=== PATIENT | male | born 1970 | race Caucasian/White ===

== ENCOUNTER 2019-02-21 13:15 | Emergency (ER) | payer OTHER ==
[~2019-02-21] VITALS: Ht 172.7 cm; Wt 73.5 kg
--- NOTE | 2019-02-21 13:20 | NUR ---
ED Nurse Note: Patient walked in to ER from work due to lower back pain x 30 mins ago. Patient stated that he carried a heavy object at his workplace then accidentally hurt his back. No nausea/ vomiting noted. No injury was reported. Breathing even and unlabored. Afebrile. Alert and oriented x4, verbally responsive.
[2019-02-21] MEDS ORDERED: NKM (13:22)
--- NOTE | 2019-02-21 13:58 | Emergency Room Report ---
History of Present Illness General Chief Complaint: Back Injury Source: Patient Present Illness HPI 49 YO Male presents to the ED C/O 11/16 in severity LBP s/p acute onset after pushing cart with basket balls in it at work. Pt. denies trauma or fall. denies hx of LBP or previous injury at the site of his pain. Pt. denies sciatica, radiation of pain or inability to ambulate. Pt. denies recent spinal procedures or hx of Cancer. Denies numbness tingling or loss of sensation or gross motor movements of the extremities, incontinence of bowel or bladder. Denies CP, Palpitations, LOC, AMS, dizziness, Changes in Vision, weakness or a sudden severe headache. Pt. took Advil [employer] which provided some mild relief. No other aggravating or relieving factors at this time. Allergies: Coded Allergies: No Known Allergies (Unverified , 02/21/19) Patient History Past Medical History: see triage record Past Surgical History: none Pertinent Family History: none Reviewed Nursing Documentation: PMH: Agreed; PSxH: Agreed Nursing Documentation-PMH Past Medical History: No Stated History Review of Systems All Other Systems: negative except mentioned in HPI Physical Exam Vital Signs Date Time Temp Pulse Resp B/P (MAP) Pulse Ox O2 Delivery O2 Flow Rate FiO2 02/21/19 13:19 98.4 69 16 129/83 (98) 98 Room Air Sp02 EP Interpretation: reviewed, normal General Appearance: no apparent distress, alert, GCS 15, non-toxic Head: normocephalic, atraumatic Eyes: bilateral eye normal inspection, bilateral eye PERRL ENT: hearing grossly normal, normal voice Neck: full range of motion Respiratory: lungs clear, normal breath sounds, speaking full sentences Cardiovascular #1: regular rate, rhythm Gastrointestinal: non tender, soft Genitourinary: normal inspection, no CVA tenderness Musculoskeletal: back normal, gait/station normal, normal range of motion, tender - Mild Tenderness to palpation to bilateral paraspinal muscles of the lower back with little midline tenderness. FROM pain with forward flexion begining at the 90* point. No obvious bony deformity, no Palpable step-off, no significant localized bony spinous process ttp. Tenderness is generalized Neurologic: alert, oriented x3, responsive, motor strength/tone normal, sensory intact, speech normal, other - No cauda equina. No evidence of incontinence., grossly normal Psychiatric: judgement/insight normal Lymphatic: no adenopathy Medical Decision Making PA Attestation Dr. Soto is my supervising Physician whom patient management has been discussed with. Diagnostic Impression: Primary Impression: Lumbosacral strain Qualified Codes: S39.012A - Strain of muscle, fascia and tendon of lower back , initial encounter Additional Impression: Back pain Qualified Codes: M54.5 - Low back pain ER Course 49 YO Male presents to the ED C/O 11/16 in severity LBP s/p acute onset after pushing cart with basket balls in it at work. Pt. denies trauma or fall. denies hx of LBP or previous injury at the site of his pain. Pt. denies sciatica, radiation of pain or inability to ambulate. Pt. denies recent spinal procedures or hx of Cancer. Denies numbness tingling or loss of sensation or gross motor movements of the extremities, incontinence of bowel or bladder. Denies CP, Palpitations, LOC, AMS, dizziness, Changes in Vision, weakness or a sudden severe headache. Pt. took Advil [employer] which provided some mild relief. No other aggravating or relieving factors at this time. Ddx considered: epidural abscess, fracture, sprain/strain, meningitis, spinal chord injury, sciatica, cauda equina, Pyelonephritis, renal calculi just to name a few. Vital signs reviewed and are WNL during ED visit. Pt. is afebrile with no signs of infection No new symptoms, and denies recent trauma. No saddle anesthesia noted, Pt. denies incontinence Neurovascularly intact FROM with some exacerbation of pain upon forward flexion. * Mild Tenderness to palpation to bilateral paraspinal muscles of the lower back with little midline tenderness. ORDERS: none warranted at this time. INTERVENTIONS: - Lidoderm TP -Tramadol PO -I do not identify an emergent condition at this time. With current presentation , pt. is stable for close outpatient follow up and conservative treatment. D/ w pt. to return promptly to ED with worsening or new symptoms.- Pt. verbalizes' understanding and agreement with proposed treatment plan.proposed treatment plan. DISCHARGE: At this time pt. is stable for d/c to home. Will provide printed patient care instructions, and any necessary prescriptions. Care plan and follow up instructions have been discussed with the patient prior to discharge. Last Vital Signs Date Time Temp Pulse Resp B/P (MAP) Pulse Ox O2 Delivery O2 Flow Rate FiO2 02/21/19 13:19 98.4 69 16 129/83 (98) 98 Room Air Disposition: HOME, SELF-CARE Condition: Stable Scripts Lidocaine Patch* (Lidoderm Patch*) 1 Each Adh..patch 1 PATCH TOPIC DAILY, #30 PATCH 0 Refills Patch(es) may remain in place for up to 12 hours in any 24-hour period. Prov: Fouzia Torrez 02/21/19 Methocarbamol* (ROBAXIN-750*) 750 Mg Tablet 750 MG PO QID for 7 Days, #28 TAB 0 Refills Prov: oFuzia Torrez 02/21/19 Ibuprofen* (MOTRIN*) 600 Mg Tablet 600 MG ORAL THREE TIMES A DAY, #30 TAB 0 Refills Prov: Fouzia Torrez 02/21/19 Departure Forms: Return to Work Return to Work Date: Feb 22, 2019 Work Restrictions: No Heavy Lifting Other Restrictions: May return Sooner to full duty, if Symptoms have resolved. Return to Full Activity: Mar 01, 2019 Patient Instructions: Back Pain, Adult, Muscle Strain, [id number] Additional Instructions: Take medications as directed. Follow up with a Primary Care Provider in 3-5 days, even if your symptoms have resolved. --Please review list of primary care clinics, if you do not already have a primary care provider Return sooner to ED if new symptoms occur, or current symptoms become worse. Do not drink alcohol, drive, or operate heavy machinery while taking Robaxin ( Muscle Relaxers) as this may cause drowsiness. - Please note that this Emergency Department Report was dictated using [employer] care technician technology software, occasionally this can lead to erroneous entry secondary to interpretation by the dictation equipment. Fouzia Torrez Feb 21, 2019 13:58
[2019-02-21] MEDS ORDERED: IBUPROFEN600 MG ORAL (13:59)
[2019-02-21] MEDS ORDERED: ROBAXIN-750750 MG PO (13:59)
[2019-02-21] MEDS ORDERED: LIDODERM700 M1 TOPIC (13:59)
[2019-02-21] MEDS ORDERED: traMADol 50mg tab ORAL ONE (14:15)
[2019-02-21 14:19] VITALS: BP 130/79
--- NOTE | 2019-02-21 14:19 | NUR ---
ED Nurse Note: Pt cleared by ERMD for discharge. DC instructions/prescription was given and explained to pt and verbalized understanding of teachings. All medical deviecs such as ID band removed. Pt is AAO x4, ambulatory and left with all personal belongings.
== END 2019-02-21 14:19 | disposition home or self-care (01) ==
LOC: EMR 13:45
DX: S39.012A Strain of muscle, fascia and tendon of lower back, initial encounter (principal); M54.5 Low back pain; X58.XXXA Exposure to other specified factors, initial encounter; Y92.9 Unspecified place or not applicable
CPT/HCPCS: 99282